=== PATIENT | female | born 2000 | race Caucasian/White ===

== ENCOUNTER 2020-12-24 00:38 | Emergency (ER) | payer OTHER ==
[~2020-12-24] VITALS: Ht 165.1 cm; Wt 52.3 kg
--- NOTE | 2020-12-24 00:38 | NUR ---
INITIAL PT CONTACT. PT PRESENTS TO ED VIA EMS FOLLOWING A SELF HARMING EPISODE. PT PLACED ON L2K BY PD. "I DON'T KNOW WHY I DID IT, I AM NOT SUICIDAL, I DON'T WANT TO . I JUST HAVE BEEN STRUGGLING WITH A LOT OF SELF IMAGE ISSUES AND I DON'T LIKE THE WAY I LOOK". PT USED A RAZOR BLADE AND CUT APPROX 12 HORIZONTAL LACERATIONS INTO HER LEFT FOREARM. PT DENIES AND SI AT THIS TIME. PT STATES "I HAVE A SIGNIFICANT PSYH HISTORY, I HAVE BEEN TO MANY PSYCH FACILITIES AND THEY DON'T HELP. 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 I JUST DON'T EVEN KNOW MYSELF WHEN I LOOK IN THE MIRROR. I SEE PEOPLE FOR PSYCH STUFF AND THEY HAVE BEEN CHANGING MY MEDICATIONS, I JUST STARTED ABILIFY AND I ALSO TAKE TRAZADONE". PT SITTING UPRIGHT ON KYLE MOHR, VSChandler. BLEEDING OF WOUNDS ON LEFT ARM CONTROLLED. SAFETY [place] DOWN AND ALL BELONGINGS PLACED IN PT BELONGING BAGS AND SECURED IN APPROPRIATE LOCKER. PERSONAL BELONGINGS X3 BAGS.
[2020-12-24] MEDS ORDERED: LIDOCAINE 1%, 10ML INFIL ONE (01:00)
[2020-12-24] MEDS ORDERED: LIDOCAINE-MPF 1%, 5ML ONE (01:12)
[2020-12-24 01:28] LABS: BASOPHILS % (AUTO) 1 % (0-1); EOSINOPHILS % (AUTO) 2 % (1-7); LYMPHOCYTES % (AUTO) 42 % (22-44); MEAN CORPUSCULAR HEMOGLOBIN 32.1 pg (27.0-34.8); MEAN CORPUSCULAR HGB CONC 34.2 g/dL (32.4-35.8); MEAN PLATELET VOLUME 7.6 fL (7.4-10.4); MONOCYTES % (AUTO) 6 % (2-9); NEUTROPHILS % (AUTO) 49 % (42-75); PLATELET COUNT 418 x10^3/uL (130-400); RED BLOOD COUNT 4.49 x10^6/uL (3.82-5.3); RED CELL DISTRIBUTION WIDTH 14.5 % (9.6-15.2)
--- NOTE | 2020-12-24 01:28 | NUR ---
ERP AT BEDSIDE FOR LACERATION REPAIR
[2020-12-24 01:34] LABS: MD NO
[2020-12-24 01:35] LABS: ALBUMIN 4.4 g/dL (3.4-5.0); ANION GAP 10 mmol/L (5-15); CALCIUM 9.1 mg/dL (8.5-10.1); CHLORIDE 108 mmol/L (98-107); CREATININE 0.72 mg/dL (0.55-1.02)
[2020-12-24 01:42] LABS: AMPHETAMINE SCREEN, URINE Negative (Negative); BARBITURATE SCREEN, URINE Negative (Negative); BENZODIAZEPINE SCREEN, URINE Negative (Negative); CANNABINOID SCREEN, URINE Negative (Negative); COCAINE SCREEN, URINE Negative (Negative); METHADONE SCREEN, URINE Negative (Negative); OPIATE SCREEN, URINE Negative (Negative)
[2020-12-24 01:47] LABS: SALICYLATE LEVEL < 1.7 mg/dL (2.8-20.0)
--- NOTE | 2020-12-24 02:00 | NUR ---
TELE PSYCH CONSULT REQUESTED
--- NOTE | 2020-12-24 02:00 | NUR ---
PT SITTING UPRIGHT ON GURNEY, AIYANA REMAINS AT BEDSIDE FOR WOUND REPAIR. PT DENIES ANY NEEDS AT THIS TIME.
--- NOTE | 2020-12-24 03:00 | NUR ---
FOLLOW UP CALL WITH TELE PSYCH FOR ETA "UNABLE TO GET ONE AT THIS TIME".
--- NOTE | 2020-12-24 03:00 | NUR ---
PT SITTING UPRIGHT ON GURNEY WATCHING TV. PT DENIES ANY NEEDS AT THIS TIME.
--- NOTE | 2020-12-24 03:48 | NUR ---
WOUNDS ON LEFT FOREARM CLEANSED WITH NS AND DRESSED WITH GAUZE. PT TOLERATED WELL.
[2020-12-24] MEDS ORDERED: LORazepam 1MG TABLET ONE ×2 (03:53→08:17)
[2020-12-24] MEDS ORDERED: LORazepam 1MG TABLET PO ONE ×2 (04:00→08:00)
--- NOTE | 2020-12-24 04:00 | NUR ---
PT PACING IN ROOM, REPORTING ANXIETY. PT REQUESTNG MEDICATION "TO CALM ME DOWN, IM REALLY NERVOUS". ERP AWARE, PT MEDICATED PER EMAR. AWAITING TELE PSYCH AT THIS TIME. PT DENIES ANY ADDITIONAL NEEDS
--- NOTE | 2020-12-24 05:00 | NUR ---
FOLLOW UP CALL WITH TELE PSYCH FOR ETA "UNABLE TO GET ONE AT THIS TIME".
--- NOTE | 2020-12-24 05:02 | NUR ---
PT SITTING UPRIGHT ON GURNEY WATCHING TV, REPOSITIONED PER REQUEST. PROVIDED CUP OF WATER. PT DENIES ANY ADDITIONAL NEEDS AT THIS TIME. PT TEARFUL AND "STILL ANXIOUS", AWAITING TELEPSYCH.
--- NOTE | 2020-12-24 06:51 | NUR ---
REPORT FROM MELISSA
--- NOTE | 2020-12-24 06:54 | NUR ---
PT GIVEN READING MATERIAL AND MARKER TO COLOR. PT DENIES ANY ADDITIONAL NEEDS. AWAITING TELE PSYCH.
--- NOTE | 2020-12-24 07:02 | NUR ---
BEDSIDE REPORT TO CRESCENCIO BORGES
--- NOTE | 2020-12-24 07:28 | NUR ---
REPORT TO TELEPSYCH MD. WILL CALL PT SOON
--- NOTE | 2020-12-24 07:51 | NUR ---
PT TO BE PLACED ON A HOLD. COMPLETED TELEPSYCH
[2020-12-24] MEDS ORDERED: ARIPIPRAZOLE 2 MG TABLET PO ONE (07:54)
[2020-12-24] MEDS ORDERED: TRAZODONE 150MG TABLET PO ONE (07:54)
[2020-12-24] MEDS ORDERED: ARIPIPRAZOLE 5 MG TABLET ONE (08:13)
--- NOTE | 2020-12-24 08:58 | NUR ---
RECIEVED REPORT FROM JONY PRATHER. PT RESTING ON BLAKEREFE. NADN. SITTER REMAINS AT BEDSIDE. ROOM REMAINS SECURE. HOSPITAL BED AND BREAKFAST ORDERED FOR PT.
--- NOTE | 2020-12-24 09:01 | NUR ---
RN CALLED PTS MOTHER MORE PER REQUEST BY PT, , UPDATED ON SITUATION
--- NOTE | 2020-12-24 09:02 | NUR ---
REPORT TO HARSH
[2020-12-24 09:21] VITALS: BP 116/81
[2020-12-24] MEDS ORDERED: PLEASE ENTER HEIGHT AND WEIGHT MC SCH (09:30)
--- NOTE | 2020-12-24 09:35 | NUR ---
PT MOVED FROM [facility] TO HOSPITAL BED. PT PROVIDED W/ BREAKFAST. NADN. SITTER REMAINS AT BEDSIDE. ROOM REMAINS SECURE.
--- NOTE | 2020-12-24 10:25 | NUR ---
PT RESTING ON BED. NADN. SITTER REMAINS AT BEDSIDE. ROOM REMAINS SECURE.
--- NOTE | 2020-12-24 11:30 | NUR ---
MOM AT BEDSIDE TALKING W/ PT.
--- NOTE | 2020-12-24 12:00 | NUR ---
DAD NOW AT BEDSIDE TALKING W/ PT. FATHER PROVIDED WITH 2 BAGS OF PT PERSONAL BELONGINGS AND PT NECKLACE TO TAKE HOME. PT NOW WITH BAG 1 OF 1 IN SECURE LOCKER.
--- NOTE | 2020-12-24 12:44 | NUR ---
PT RESTING IN BED. NADN.
--- NOTE | 2020-12-24 12:45 | NUR ---
REPORT GIVEN TO JONY OAKES ON [facility]. ALL QUESTIONS ANSWERED. AWAITING PT TRANSPORT.
[2020-12-24] MEDS ORDERED: ARIP2TAB2 PO (18:41)
[2020-12-24] MEDS ORDERED: TRAZ-175 PO (18:41)
[2020-12-24] MEDS ORDERED: TRAZODONE 150MG TABLET PO SCH (21:00)
[2020-12-25] MEDS ORDERED: ARIP5TAB13 PO (13:23)
== END 2020-12-24 12:53 ==
LOC: ED 08:27
DX: S51.812A Laceration without foreign body of left forearm, initial encounter (principal); Z20.822 Contact with and (suspected) exposure to COVID-19; F33.1 Major depressive disorder, recurrent, moderate; R45.851 Suicidal ideations; X78.8XXA Intentional self-harm by other sharp object, initial encounter; Y93.89 Activity, other specified; Y92.59 Other trade areas as the place of occurrence of the external cause; Y99.8 Other external cause status
CPT/HCPCS: 12034; 36415; 80048; 80299; 80307; 80320; 80329; 82040; 84703; 85025; 87426; 99285; G0480

== ENCOUNTER 2020-12-24 11:17 | Inpatient (IN) | payer OTHER ==
[~2020-12-24] VITALS: Ht 164.1 cm; Wt 47.7 kg
[2020-12-24] MEDS ORDERED: DOCUSATE 100 MG CAPSULE PO PRN (12:00)
[2020-12-24] MEDS ORDERED: POLYETHYLENE GLYCOL 17 GM PACKET PO PRN (12:00)
[2020-12-24] MEDS ORDERED: ONDANSETRON ODT 4 MG PO PRN (12:00)
[2020-12-24] MEDS ORDERED: ACETAMINOPHEN 325 MG TABLET PO PRN (12:00)
[2020-12-24] MEDS ORDERED: BISACODYL 10 MG SUPP PR PRN (12:00)
[2020-12-24] MEDS ORDERED: PLEASE ENTER HEIGHT AND WEIGHT MC SCH (13:30)
[2020-12-24] MEDS ORDERED: TRAZ-175 PO (18:41)
[2020-12-24] MEDS ORDERED: ARIP2TAB2 PO (18:41)
[2020-12-24] MEDS ORDERED: ARIPIPRAZOLE 5 MG TABLET PO SCH (21:00)
[2020-12-24] MEDS ORDERED: TRAZODONE 100MG TABLET PO SCH (21:00)
[2020-12-25] MEDS ORDERED: ARIP5TAB13 PO (13:23)
== END 2020-12-24 16:40 | disposition home or self-care (01) | DRG 885 ==
LOC: 3E 13:04
PROVIDERS: ADMIT Psychiatry & Neurology Psychosomatic Medicine; ATTEND Psychiatry & Neurology Psychosomatic Medicine
DX: F31.30 Bipolar disorder, current episode depressed, mild or moderate severity, unspecified (principal); F50.00 Anorexia nervosa, unspecified; Z68.1 Body mass index [BMI] 19.9 or less, adult; F17.200 Nicotine dependence, unspecified, uncomplicated; J45.909 Unspecified asthma, uncomplicated; Z91.012 Allergy to eggs; Z91.018 Allergy to other foods; Z91.010 Allergy to peanuts
CPT/HCPCS: 71045; 93005

== ENCOUNTER 2020-12-24 16:08 | Inpatient (IN) | payer OTHER ==
[~2020-12-24] VITALS: Ht 162.6 cm; Wt 52.5 kg
[2020-12-24] MEDS ORDERED: ONDANSETRON 2MG/ML, 2ML IVPush PRN (16:30)
[2020-12-24] MEDS ORDERED: POLYETHYLENE GLYCOL 17 GM PACKET PO PRN (16:30)
[2020-12-24] MEDS ORDERED: OXYcodone IR 5MG TABLET PO PRN (16:30)
[2020-12-24] MEDS ORDERED: DOCUSATE 100 MG CAPSULE PO PRN (16:30)
[2020-12-24] MEDS ORDERED: ENOXAPARIN 40 MG/0.4 ML SQ SCH (16:30)
[2020-12-24] MEDS ORDERED: ACETAMINOPHEN 325 MG TABLET PO PRN (16:30)
[2020-12-24] MEDS: PLEASE ENTER HEIGHT AND WEIGHT MC SCH (17:00)
[2020-12-24 17:02] VITALS: BP 105/73
[2020-12-24] MEDS ORDERED: ARIP2TAB2 PO (18:41)
[2020-12-24] MEDS ORDERED: TRAZ-175 PO (18:41)
[2020-12-24 20:00] VITALS: BP 105/64
[2020-12-24] MEDS ORDERED: TRAZODONE 150MG TABLET PO SCH (21:00)
[2020-12-25] MEDS: PLEASE ENTER HEIGHT AND WEIGHT MC SCH (01:00)
[2020-12-25 01:37] LABS: BASOPHILS % (AUTO) 1 % (0-1); EOSINOPHILS % (AUTO) 4 % (1-7); LYMPHOCYTES % (AUTO) 48 % (22-44); MEAN CORPUSCULAR HEMOGLOBIN 32.7 pg (27.0-34.8); MEAN PLATELET VOLUME 7.4 fL (7.4-10.4); MONOCYTES % (AUTO) 8 % (2-9); NEUTROPHILS % (AUTO) 40 % (42-75); PLATELET COUNT 360 x10^3/uL (130-400); RED BLOOD COUNT 3.96 x10^6/uL (3.82-5.3); RED CELL DISTRIBUTION WIDTH 14.3 % (9.6-15.2)
[2020-12-25 01:38] LABS: MD NO
[2020-12-25 01:49] LABS: ALANINE AMINOTRANSFERASE 13 U/L (12-78); ALBUMIN 3.8 g/dL (3.4-5.0); ANION GAP 7 mmol/L (5-15); CALCIUM 8.7 mg/dL (8.5-10.1); CHLORIDE 106 mmol/L (98-107); CREATININE 0.72 mg/dL (0.55-1.02)
[2020-12-25 01:59] LABS: ALKALINE PHOSPHATASE 87 U/L (45-117); BILIRUBIN,TOTAL 1.3 mg/dL (0.2-1.0); TOTAL PROTEIN 6.8 g/dL (6.4-8.2)
[2020-12-25 05:52] VITALS: BP 106/62
[2020-12-25] MEDS ORDERED: ARIPIPRAZOLE 5 MG TABLET PO SCH (09:00)
[2020-12-25] MEDS ORDERED: ACETAMINOPHEN 325 MG TABLET PO PRN (09:30)
[2020-12-25 10:31] VITALS: BP 105/70
[2020-12-25 12:37] VITALS: BP 99/65
[2020-12-25] MEDS ORDERED: ARIP5TAB13 PO (13:23)
== END 2020-12-25 15:44 | DRG 605 ==
LOC: 5SO 16:50
PROVIDERS: ADMIT Internal Medicine; ATTEND Internal Medicine
DX: S51.812A Laceration without foreign body of left forearm, initial encounter (principal); R45.851 Suicidal ideations; F50.00 Anorexia nervosa, unspecified; I49.5 Sick sinus syndrome; F43.10 Post-traumatic stress disorder, unspecified; F31.9 Bipolar disorder, unspecified; F41.9 Anxiety disorder, unspecified; Z20.822 Contact with and (suspected) exposure to COVID-19; F17.210 Nicotine dependence, cigarettes, uncomplicated; F10.129 Alcohol abuse with intoxication, unspecified; G47.30 Sleep apnea, unspecified; X58.XXXA Exposure to other specified factors, initial encounter; Z91.012 Allergy to eggs; Z86.59 Personal history of other mental and behavioral disorders; Z91.018 Allergy to other foods; Z91.010 Allergy to peanuts; Y93.89 Activity, other specified; Y92.89 Other specified places as the place of occurrence of the external cause; Y99.8 Other external cause status
CPT/HCPCS: 36415; 80053; 83735; 84100; 84443; 84703; 85025; 93306; G0378

== ENCOUNTER 2020-12-25 13:58 | Inpatient (IN) | payer OTHER ==
[~2020-12-25] VITALS: Ht 162.6 cm; Wt 47.7 kg
[~2020-12-25 13:58] MED LIST: ARIP2TAB2 PO; ARIP5TAB13 PO; TRAZ-175 PO
[2020-12-25] MEDS ORDERED: DOCUSATE 100 MG CAPSULE PO PRN (15:00)
[2020-12-25] MEDS ORDERED: POLYETHYLENE GLYCOL 17 GM PACKET PO PRN (15:00)
[2020-12-25] MEDS ORDERED: ACETAMINOPHEN 325 MG TABLET PO PRN (15:00)
[2020-12-25 16:37] VITALS: BP 96/59
[2020-12-25] MEDS ORDERED: PLEASE ENTER HEIGHT AND WEIGHT MC SCH (17:00)
[2020-12-25 18:18] VITALS: BP 96/59
[2020-12-25] MEDS: NICOTINE 7 MG/24 HR PATCH.TD24 TD SCH (18:40)
[2020-12-25 19:45] VITALS: BP 100/65
[2020-12-25] MEDS ORDERED: TRAZODONE 150MG TABLET PO SCH (22:30)
[2020-12-25] MEDS ORDERED: LORazepam 1MG TABLET PO ONE (23:00)
[2020-12-26 05:59] LABS: CHOL/HDL RATIO 1.9; FREE T4 (FREE THYROXINE) 1.04 ng/dL (0.76-1.46); LDL/HDL RATIO 0.8 (0.5-3.0)
[2020-12-26 07:37] VITALS: BP 85/55
[2020-12-26] MEDS: ARIPIPRAZOLE 5 MG TABLET PO SCH (09:32)
[2020-12-26 11:51] LABS: MICROSCOPIC INDICATED
[2020-12-26] MEDS: NICOTINE 7 MG/24 HR PATCH.TD24 TD SCH (13:51)
[2020-12-26 19:40] VITALS: BP 97/67
[2020-12-26] MEDS: TRAZODONE 150MG TABLET PO SCH (19:58)
[2020-12-27 07:37] VITALS: BP 83/43
[2020-12-27 08:44] VITALS: BP 93/67
[2020-12-27] MEDS: ARIPIPRAZOLE 5 MG TABLET PO SCH (09:14)
[2020-12-27] MEDS: NICOTINE 7 MG/24 HR PATCH.TD24 TD SCH (16:04)
[2020-12-27] MEDS ORDERED: NICO-485 TD (17:40)
[2020-12-27] MEDS ORDERED: ARIP5TAB13 PO (17:40)
[2020-12-27 19:46] VITALS: BP 111/71
[2020-12-27] MEDS: TRAZODONE 150MG TABLET PO SCH (20:28)
[2020-12-28 07:32] VITALS: BP 90/56
[2020-12-28] MEDS: ARIPIPRAZOLE 5 MG TABLET PO SCH (08:14)
== END 2020-12-28 08:29 | disposition home or self-care (01) | DRG 885 ==
LOC: 3E 16:32
PROVIDERS: ADMIT Psychiatry & Neurology Psychosomatic Medicine; ATTEND Psychiatry & Neurology Psychosomatic Medicine
DX: F31.30 Bipolar disorder, current episode depressed, mild or moderate severity, unspecified (principal); F50.01 Anorexia nervosa, restricting type; R45.851 Suicidal ideations; F43.10 Post-traumatic stress disorder, unspecified; J45.909 Unspecified asthma, uncomplicated; R94.31 Abnormal electrocardiogram [ECG] [EKG]; G47.00 Insomnia, unspecified; Z79.899 Other long term (current) drug therapy; Z86.59 Personal history of other mental and behavioral disorders; Z91.012 Allergy to eggs; Z91.010 Allergy to peanuts; Z91.09 Other allergy status, other than to drugs and biological substances; F17.210 Nicotine dependence, cigarettes, uncomplicated
CPT/HCPCS: 36415; 80061; 81001; 84439; 84443; 87086